=== PATIENT | female | born 1980 | race Two or more races ===

== ENCOUNTER 2020-10-01 15:36 | Outpatient (CLI) | payer OTHER | END 2020-10-01 16:16 | disposition home or self-care (01) | LOC: OFIC 805 15:36 | PROVIDERS: ATTEND Otolaryngology Otology & Neurotology | DX: H90.42 Sensorineural hearing loss, unilateral, left ear, with unrestricted hearing on the contralateral side (principal); H92.02 Otalgia, left ear; H61.23 Impacted cerumen, bilateral ==